=== PATIENT | female | born 1965 | race American Indian/Alaskan Native ===

== ENCOUNTER 2021-03-12 11:24 | Emergency (ER) | payer SELFPAY ==
[2021-03-12 11:30] VITALS: BP 156/90
[2021-03-12] MEDS ORDERED: ASPIRIN 325 MG TAB PO ONE (12:17)
[2021-03-12] MEDS ORDERED: ACETAMINOPHEN 325 MG TAB ONE (12:39)
[2021-03-12 12:46] LABS: Basophils % (Auto) 0.6 % (0.0-1.8); Eosinophils # (Auto) 0.1 K/mm3 (0.0-0.4); Eosinophils % (Auto) 1.5 % (0.0-4.3); Hematocrit 46.1 % (30.3-42.9); Hemoglobin 14.7 gm/dl (10.1-14.3); Lymphocytes # (Auto) 2.3 K/mm3 (1.2-5.4); Lymphocytes % (Auto) 38.3 % (13.4-35.0); Mean Corpuscular HGB Conc 32 % (30-34); Mean Corpuscular Volume 92 fl (79-97); Monocytes # (Auto) 0.4 K/mm3 (0.0-0.8); Monocytes % (Auto) 6.9 % (0.0-7.3); Platelet Count 246 K/mm3 (140-440); Red Blood Count 5.01 M/mm3 (3.65-5.03); Red Cell Distribution Width 14.1 % (13.2-15.2)
[2021-03-12 12:55] LABS: INR 0.83 (0.87-1.13)
--- NOTE | 2021-03-12 12:57 | XRay Report ---
CHEST 2 VIEWS INDICATION: Chest Pain, + home covid test. COMPARISON: None FINDINGS: SUPPORT DEVICES: None. HEART: Within normal limits. LUNGS/PLEURA: No acute air space or interstitial disease. No pneumothorax. ADDITIONAL FINDINGS: None. IMPRESSION: 1. No acute findings. Signer Name: Jim Carpenter MD Signed: 03/12/2021 12:53 PM Workstation Name: [id number]
[2021-03-12 13:07] LABS: Blood Urea Nitrogen 21 mg/dL (7-17); Calcium 9.3 mg/dL (8.4-10.2); Hemolysis Index 11
--- NOTE | 2021-03-12 13:19 | Emergency Department Report ---
ED Chest Pain HPI - General Chief Complaint: Chest Pain Stated Complaint: CHEST PAIN, HEADACHE Time Seen by Provider: 03/12/21 12:17 Source: patient Mode of arrival: Ambulatory Limitations: No Limitations - History of Present Illness Initial Comments: 56-year-old female the past medical history of hypertension, diabetes, smoker, and elevated cholesterol presents the hospital complaining mid and bilateral sharp chest pain since 9 PM last night. Pain is in the left upper and right upper area and patient had pain shooting down her right arm. Patient complained of mild shortness of breath this morning. Patient seems to be concerned that she has COVID-19 and infectious symptoms. Just before the new year patient had URI symptoms and states that several her family members have tested positive. Patient currently does not have significant cough, fever, nausea, vomiting, or diarrhea but she does complain of some mild nasal congestion. She does not have a loss of sense of taste or smell. Patient also has been noncompliant with her insulin x2 days. She had a positive home Covid test. She is concerned that she may get kicked out of her current residence if she exposes others to Covid. She has attempted to get confirmation testing at [facility] and several facilities but has been turned away and told that she needs an appointment. She denies calf tenderness, leg edema, history of PE/DVT. She takes aspirin 81 mg daily. Has been compliant with her amlodipine 10 mg and atorvastatin. She denies that her siblings or parents have a history of CAD before the age of 65 - Related Data Allergies Allergy/AdvReac Type Severity Reaction Status Date / Time No Known Allergies Allergy Unverified 03/12/21 13:04 Heart Score - HEART Score History: Slightly suspicious EKG: Normal Age: 45-65 Risk factors: > 3 risk factors or hx of atherosclerotic disease Troponin: < normal limit HEART Score: 3 - EKG Read Time Time EKG Completed: 11:27 EKG Read Time: 11:35 ED Review of Systems ROS: Stated complaint: CHEST PAIN, HEADACHE Other details as noted in HPI Comment: All other systems reviewed and negative ED Physical Exam - General Limitations: No Limitations - Other Other exam information: General: No acute distress Head: Atraumatic Eyes: normal appearance ENT: Moist mucous membranes Neck: Normal appearance, no midline tenderness Chest: Clear to auscultation bilaterally CV: Regular rate and rhythm Abdomen: Soft, normal bowel sounds, nontender, nondistended, no rebound or guarding Back: Normal inspection Extremity: Normal inspection, full range of motion, no calf tenderness or leg edema Neuro: Alert O x 3, no facial asymmetry, speech clear, no gross motor sensory d eficit Psych: Appropriate behavior Skin: No rash ED Course Vital Signs 03/12/21 11:27 Temperature 98.0 F Pulse Rate 62 Respiratory 20 Rate Blood Pressure 156/90 O2 Sat by Pulse 100 Oximetry LEIGHTON score - Leighton Score Age > 65: (0) No Aspirin use within the Past 7 Days: (1) Yes 3 or more CAD Risk Factors: (1) Yes 2 or more Angina events in past 24 hrs: (0) No Known CAD with more than 50% Stenosis: (0) No Elevated Cardiac Markers: (0) No ST Deviation Greater than 0.5mm: (0) No LEIGHTON Score: 2 ED Medical Decision Making - Lab Data Result diagrams: 03/12/21 12:30 03/12/21 12:30 Lab Results 03/12/21 03/12/21 03/12/21 Range/Units 12:30 12:30 12:30 WBC 6.1 (4.5-11.0) K/mm3 RBC 5.01 (3.65-5.03) M/mm3 Hgb 14.7 H (10.1-14.3) gm/dl Hct 46.1 H (30.3-42.9) % MCV 92 (79-97) fl MCH 29 (28-32) pg MCHC 32 (30-34) % RDW 14.1 (13.2-15.2) % Plt Count 246 (140-440) K/mm3 Lymph % (Auto) 38.3 H (13.4-35.0) % [place] % (Auto) 6.9 (0.0-7.3) % Eos % (Auto) 1.5 (0.0-4.3) % Baso % (Auto) 0.6 (0.0-1.8) % Lymph # (Auto) 2.3 (1.2-5.4) K/mm3 [place] # (Auto) 0.4 (0.0-0.8) K/mm3 Eos # (Auto) 0.1 (0.0-0.4) K/mm3 Baso # (Auto) 0.0 (0.0-0.1) K/mm3 Seg Neutrophils % 52.7 (40.0-70.0) % Seg Neutrophils # 3.2 (1.8-7.7) K/mm3 PT 12.4 (12.2-14.9) Sec. INR 0.83 L (0.87-1.13) Sodium 139 (137-145) mmol/L Potassium 3.7 (3.6-5.0) mmol/L Chloride 103.7 (98-107) mmol/L Carbon Dioxide 19 L (22-30) mmol/L Anion Gap 20 mmol/L BUN 21 H (7-17) mg/dL Creatinine 0.7 (0.6-1.2) mg/dL Estimated GFR > 60 ml/min BUN/Creatinine Ratio 30 % Glucose 237 H (65-100) mg/dL Calcium 9.3 (8.4-10.2) mg/dL Troponin T < 0.010 (0.00-0.029) ng/mL 03/12/21 Range/Units 15:00 WBC (4.5-11.0) K/mm3 RBC (3.65-5.03) M/mm3 Hgb (10.1-14.3) gm/dl Hct (30.3-42.9) % MCV (79-97) fl MCH (28-32) pg MCHC (30-34) % RDW (13.2-15.2) % Plt Count (140-440) K/mm3 Lymph % (Auto) (13.4-35.0) % [place] % (Auto) (0.0-7.3) % Eos % (Auto) (0.0-4.3) % Baso % (Auto) (0.0-1.8) % Lymph # (Auto) (1.2-5.4) K/mm3 [place] # (Auto) (0.0-0.8) K/mm3 Eos # (Auto) (0.0-0.4) K/mm3 Baso # (Auto) (0.0-0.1) K/mm3 Seg Neutrophils % (40.0-70.0) % Seg Neutrophils # (1.8-7.7) K/mm3 PT (12.2-14.9) Sec. INR (0.87-1.13) Sodium (137-145) mmol/L Potassium (3.6-5.0) mmol/L Chloride (98-107) mmol/L Carbon Dioxide (22-30) mmol/L Anion Gap mmol/L BUN (7-17) mg/dL Creatinine (0.6-1.2) mg/dL Estimated GFR ml/min BUN/Creatinine Ratio % Glucose (65-100) mg/dL Calcium (8.4-10.2) mg/dL Troponin T < 0.010 (0.00-0.029) ng/mL - EKG Data -: EKG Interpreted by Or EKG shows normal: sinus rhythm, ST-T waves (No STEMI) Rate: normal - Radiology Data Radiology results: report reviewed CHEST 2 VIEWS INDICATION: Chest Pain, + home covid test. COMPARISON: None FINDINGS: SUPPORT DEVICES: None. HEART: Within normal limits. LUNGS/PLEURA: No acute air space or interstitial disease. No pneumothorax. ADDITIONAL FINDINGS: None. IMPRESSION: 1. No acute findings. - Medical Decision Making 56-year-old female presents to the hospital [facility] with chest pain. Patient stable cardiac risk factors however, heart score of 3 with a normal EKG and troponin negative x2. It appears that patient primarily is seeking out a Covid test. Explained to her that we do not perform Covid test unless you are admitted with suspected Covid related symptoms. Patient is not hypoxic and does not have an infiltrate on her chest x-ray. She reports a positive home Covid test. She was encouraged to seek a Covid testing facility as an outpatient to verify her results to address her concern. Chart faxed to [facility] for outpatient stress test Critical Care Time: No Critical care attestation.: If time is entered above; I have spent that time in minutes in the direct care of this critically ill patient, excluding procedure time. ED Disposition Clinical Impression: Atypical chest pain, URI (upper respiratory infection), COVID, Diabetes Disposition: 01 HOME / SELF CARE / HOMELESS Is pt being admited?: No Does the pt Need Aspirin: No Condition: Stable Instructions: Nonspecific Chest Pain, Adult, Prevent the Spread of COVID-19 if You Are Sick - CDC, Diabetes Mellitus Type 2 in Adults (ED), Diabetes Mellitus and Nutrition, Adult Additional Instructions: Take [id number] medication such as Coricidin P meds to help with your COVID-19 respiratory symptom. follow-up with your doctor or doctor/clinic provided. Return if symptoms worsen as indicated by your discharge instructions. I have asked that she follow-up with your doctor for a refill in your insulin since you are unable to recall the medication or go to the home where you left your medication behind and get your medicine. Your chart has been faxed to the cardiology office for outpatient follow-up and further heart testing. You may confirm your COVID-19 diagnosis by finding outpatient testing center. Referrals: [facility] [Provider Group] - 3-5 Days (Primary care clinic) [facility] [Registered Nurse] - 3-5 Days (home care physical therapist ) Time of Disposition: 17:01
[2021-03-12 13:27] LABS: BUN/Creatinine Ratio 30
[2021-03-12] MEDS ORDERED: ASPIRIN 325 MG TAB PO NR (14:00)
--- NOTE | 2021-03-13 12:06 | Electrocardiograph Report ---
[facility] Test Date: 2021-03-12 Test Time: 11:27:51 Pat Name: OLGA WYLIE Department: Room: Gender: F Property Underwriter: TEZ : 1965 Requested By: BERNICE ARTHUR Order Number: [id number] Reading MD: Leighton Miller Measurements Intervals [place] Rate: 70 P: 45 [place]: 126 QRS: 6 QRSD: 81 T: 90 QT: 401 QTc: 432 Interpretive Statements Sinus rhythm No previous ECG available for comparison Electronically Signed On 03-13-2021 12:06:27 EST by Leighton Miller
== END 2021-03-12 17:48 | disposition home or self-care (01) ==
LOC: ED 11:24
DX: U07.1 COVID-19 (principal); R07.89 Other chest pain; J06.9 Acute upper respiratory infection, unspecified
CPT/HCPCS: 36415; 71046; 80048; 84484; 85025; 85610; 93005; 99284